=== PATIENT | female | born 2000 ===

== ENCOUNTER 2018-11-11 07:54 | Outpatient (CLI) | payer BC ==
[~2018-11-11] VITALS: Ht 177.8 cm; Wt 140.6 kg
== END 2018-11-11 08:00 | disposition home or self-care (01) ==
LOC: OFIC 805 07:54
DX: H66.93 Otitis media, unspecified, bilateral (principal); H60.8X2 Other otitis externa, left ear; H61.23 Impacted cerumen, bilateral